=== PATIENT | male | born 1970 | race Two or more races ===

== ENCOUNTER 2020-12-06 19:25 | Emergency (ER) | payer MEDICAID ==
[~2020-12-06] VITALS: Ht 175.3 cm; Wt 72.6 kg
[2020-12-06] MEDS ORDERED: [UNRECOGNIZED DRUG - CODE] PO (19:38)
[2020-12-06] MEDS ORDERED: PANT40TA2 PO (19:38)
[2020-12-06] MEDS ORDERED: ALPR0.5T8 PO (19:38)
[2020-12-06] MEDS ORDERED: PRIM50TA10 PO (19:38)
[2020-12-06] MEDS ORDERED: GABA800T11 PO (19:38)
--- NOTE | 2020-12-06 19:42 | NUR ---
DR VANN INTO EVAL PATIENT.
[2020-12-06] MEDS ORDERED: ONDANSETRON 4 MG/2 ML VIAL IV ONE (19:45)
[2020-12-06] MEDS ORDERED: PANTOPRAZOLE SODIUM IV 80 MG in IV DEXTROSE 5% 100 ML IV ONE (19:45)
[2020-12-06] MEDS ORDERED: IV NORMAL SALINE 1000 ML BAG IV ONE (19:45)
[2020-12-06 20:08] LABS: BASOPHILS % (AUTO) 0.4 % (0.0-2.0); EOSINOPHILS % (AUTO) 0.5 % (0.0-7.0); HEMATOCRIT 29.5 % (36.7-47.1); HEMOGLOBIN 9.9 g/dL (12.5-16.3); LYMPHOCYTES # (AUTO) 1.1 K/uL (20.0-40.0); MEAN CORPUSCULAR HEMOGLOBIN 28.2 uug (23.8-33.4); MEAN CORPUSCULAR HGB CONC 33 g/dL (32.5-36.3); MEAN CORPUSCULAR VOLUME 84.5 fL (73.0-96.2); MONOCYTES # (AUTO) 0.4 K/uL (2.0-10.0); MONOCYTES % (AUTO) 10.6 % (0.0-11.0); NEUTROPHILS # (AUTO) 2.1 K/uL (1.8-8.9); NEUTROPHILS % (AUTO) 58.5 % (38.5-71.5); PLATELET COUNT (AUTO) 241 K/uL (152-348); RED BLOOD CELL COUNT(AUTO) 3.49 MIL/uL (4.06-5.63); WHITE BLOOD COUNT (AUTO) 3.6 K/uL (3.6-10.2)
[2020-12-06 20:14] LABS: CREATININE 0.7 mg/dL (0.6-1.3); POTASSIUM 3.1 mmol/L (3.5-5.1)
[2020-12-06] MEDS ORDERED: PANTOPRAZOLE SODIUM 40 MG VIAL ONE (20:15)
[2020-12-06] MEDS ORDERED: ONDANSETRON 4 MG/2 ML VIAL ONE (20:15)
[2020-12-06 20:20] LABS: BILIRUBIN,DIRECT 0.2 mg/dL (0.0-0.2); BILIRUBIN,TOTAL 0.6 mg/dL (0.2-1.0); TOTAL PROTEIN, SERUM 7.5 g/dL (6.4-8.2)
--- NOTE | 2020-12-06 20:35 | NUR ---
PATIENT REFUSED TO HAVE ZOFRAN IVP STATING "I DON'T WANT IT IF I DON'T GET PAIN MEDS."
--- NOTE | 2020-12-06 20:39 | NUR ---
PATIENT REFUSED K-DUR. STATING "I DON'T NEED IT. I NEED PAIN MEDICATION." EXPLAINED THE PURPOSE AND ACTION OF MEDICATION TO PATIENT.
--- NOTE | 2020-12-06 20:40 | NUR ---
DR VANN INTO REVAL PATIENT. PATIENT WAS UPSET AND PULLED OUT IV AFTER BEING TOLD NO NARCOTIC MEDS WILL BE PRESCRIBE.
[2020-12-06] MEDS ORDERED: POTASSIUM CHLORIDE 20 MEQ TAB.PRT.SR PO ONE (20:45)
[2020-12-06] MEDS ORDERED: POTASSIUM CHLORIDE 20 MEQ TAB.PRT.SR ONE (20:48)
--- NOTE | 2020-12-06 20:54 | NUR ---
Patient discharged to home in stable condition. Written and verbal after care instructions given. Patient verbalizes understanding of instructions. Stressed follow up or return to ER for worsening s/s.
== END 2020-12-06 21:10 | disposition home or self-care (01) ==
LOC: ER 19:29
DX: G89.29 Other chronic pain (principal); D64.9 Anemia, unspecified; K92.0 Hematemesis; Z92.3 Personal history of irradiation; C80.1 Malignant (primary) neoplasm, unspecified; Z79.899 Other long term (current) drug therapy; Z88.6 Allergy status to analgesic agent; E87.6 Hypokalemia
CPT/HCPCS: 36415; 80048; 80076; 83690; 85025; 85610; 86850; 86900; 86901; 93005; 96365; 99284; C9113; J7060; A4663; J2405; J7030